=== PATIENT | male | born 1995 | race African-American/Black ===

== ENCOUNTER 2018-02-19 05:05 | Day surgery (SDC) | payer BC ==
[~2018-02-19] VITALS: Ht 170.2 cm; Wt 89.8 kg
--- NOTE | ~2018-02-19 | OP ---
PATIENT NAME: DANYELLE ORTEGA MEDICAL RECORD: [id number] :94 LOCATION:[facility] ADMISSION DATE: SURGEON: RAYO ATWOOD MD DATE OF OPERATION: 02/19/2018 SURGEON: Rayo Atwood MD ANESTHESIA: General anesthesia by Sree Cedillo CRNA DIAGNOSIS: Elective male sterilization. PROCEDURE: Vasectomy. SPECIMENS: Left vas and right vas. ESTIMATED BLOOD LOSS: Minimal. CLINICAL HISTORY: This is a 22-year-old male who has 3 children by 3 different mothers. He is wary of paying further child support and he would like to have elective male sterilization procedure performed. He is otherwise in excellent health. He is not allergic to any medications and he was given Ancef on-call to the OR. DESCRIPTION OF PROCEDURE: The patient was given induction of general anesthesia. He was in supine position. He was then prepped and draped. The vas was very narrow on this patient and it was difficult to palpate. We did find it eventually. On the right side, we placed towel clamp proximally and distally on the vas to trap it between a certain area of skin. A 1-cm incision was made through the skin using a #15 blade. We went down through the dartos fascia using cautery. Using a Danielito clamp, I managed to find the vas deferens around the tunics. The tunics were stripped using the Bovie on the cutting current to thin out the tunics. Then, forceps were used to strip the tunics away and uncover the vas deferens. Right angle was then placed around the vas deferens and used to strip the tunics further. The proximal and distal end of the vasal segment was then tied using 2-0 Prolene. The vas segment intervening was then cut using Metzenbaum scissors. This was sent to pathology for identification. The vasal ends were then cauterized. Any bleeding points were cauterized. The skin was infiltrated with 0.25% Marcaine with epinephrine. The skin incision was closed using simple interrupted 4-0 Vicryl. The identical procedure was performed on the opposite side. At the end of the procedure, fluffs and mesh panties were given to the patient. I will see the patient in about 2 weeks' time to check on wound healing. At about one month postoperatively, he will have a post-vasectomy semen analysis to verify that he is azoospermic. TRANSINT:[id number] Voice Confirmation ID: [id number] DOCUMENT ID: [id number] OPERATIVE REPORT [id number] DANYELLE ORTEGA [facility] S MD at 1141 CC: [id number] DICTATION DATE: 02/19/18929 CLERK OPERATOR: 02/19/18 [id number] [place] [address]
[2018-02-19 06:02] VITALS: BP 147/90; Ht 170.2 cm; Wt 89.8 kg
== END 2018-02-19 11:15 | disposition home or self-care (01) ==
LOC: D.OPS 05:05 → D.PAN 07:30 → D.OPS 11:15
DX: Z30.2 Encounter for sterilization (principal); Z01.812 Encounter for preprocedural laboratory examination

== ENCOUNTER 2018-02-27 11:22 | Day surgery (SDC) | payer BC ==
[~2018-02-27] VITALS: Ht 170.2 cm; Wt 93.0 kg
--- NOTE | ~2018-02-27 | OP ---
PATIENT NAME: DANYELLE ORTEGA MEDICAL RECORD: [id number] :94 LOCATION:[facility] ADMISSION DATE: SURGEON: RAYO ATWOOD MD DATE OF OPERATION: 02/27/2018 SURGEON: Rayo Atwood MD ANESTHESIA: TIVA by Sid Lockett CRNA. DIAGNOSIS: Right scrotal hematoma. PROCEDURE: Evacuation of right scrotal hematoma and packing of scrotal wound. SPECIMENS: Culture swabs. ESTIMATED BLOOD LOSS: Minimal. CLINICAL HISTORY: This is a 22-year-old male, who recently had a vasectomy procedure performed. 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 When I saw him today, he was complaining of bleeding from the right scrotal incision. Venous blood was seen to be seeping out from the incision. Some of the sutures had already been disrupted. Due to the potential for infection. I had him scheduled for evacuation of the scrotal hematoma. He did not eat anything since midnight the day before and therefore, he was ready for surgery. He was given perioperative Ancef industrial automation specialist to the OR. DESCRIPTION OF PROCEDURE: The patient was given IV sedation. He was in prone position. He was prepped and draped. I removed all the sutures from his previous vasectomy incision, which was about 1 cm in length. By just squeezing the surrounding skin, blood clots were evacuated out of the wound. We then inserted the Yankauer suction tip and suctioned out all of the hematoma from the cavity within. Swabs were also obtained of the cavity blood clot to check for infection. The wound was irrigated out internally with normal saline irrigation also. I then placed a quarter inch packing of iodoform into the scrotal wound and left a tail of the packing out of the incision. I will arrange for home care to change the packing on a daily basis. The patient has a prescription for pain medications. He also has a note for light duties from his work places. I will see him in 2 weeks in followup to check on his wound healing. TRANSINT:[id number] Voice Confirmation ID: [id number] DOCUMENT ID: [id number] RAYO ATWOOD MD at 1647 CC: [id number] DICTATION DATE: 02/27/18 1520 DIRECTOR OF INCOME TAX: 02/27/18 1613 [address] [facility] [address] [id number]
[2018-02-27] MEDS ORDERED: IBUPROFEN800 MG (12:48)
[2018-02-27 13:02] VITALS: BP 142/78; Ht 170.2 cm; Wt 93.0 kg
== END 2018-02-27 18:30 | disposition home or self-care (01) ==
LOC: D.OPS 11:22
DX: N99.840 Postprocedural hematoma of a genitourinary system organ or structure following a genitourinary system procedure (principal)

== ENCOUNTER → 2018-05-08 10:26 | Outpatient (CLI) | payer BC ==
[2018-02-27 13:02] VITALS: BMI 32.2
[~2018-05-08 10:26] MED LIST: IBUPROFEN800 MG
== END | disposition home or self-care (01) ==
LOC: D.LAB 10:26
DX: N46.9 Male infertility, unspecified (principal)